=== PATIENT | male | born 1965 | race Caucasian/White ===

== ENCOUNTER 2019-11-17 | Emergency (ER) | payer OTHER ==
--- NOTE | 2019-11-17 15:07 | ED.PDOC ---
History of Present Illness - General Chief Complaint: General Stated Complaint: left shoulder pain Time Seen by Provider: 11/17/19 14:44 Source: patient Exam Limitations: no limitations - History of Present Illness Initial Comments: The patient is a 54-year-old male presented emergency room secondary to left shoulder pain that is been present for the last 4 to 5 weeks. Pain is much worse with moving his left shoulder. It is essentially posterior at its origin. It appears to be over the lateral aspect of the infraspinatus muscle. There is some pain with passive range of motion of the shoulder but much worse pain with active range of motion. He does not really remember any date injury. No dislocations. No significant falls. He has had increased activity over the last couple of months because he has been moving. No fever. No chest pain. No shortness of breath. No rash. Pain is reproducible with activation of the muscle and with palpation of the muscle. Timing/Duration: other - 4 to 5 weeks Severity: severe Improving Factors: immobilization Worsening Factors: movement Associated Symptoms: denies symptoms Allergies/Adverse Reactions: Allergies NO KNOWN ALLERGY Allergy (Verified 11/17/19 15:03) Home Medications: Ambulatory Orders Atorvastatin Calcium [Lipitor] 80 mg PO BEDTIME 11/17/19 Chlorthalidone 25 mg PO DAILY 11/17/19 Cyclobenzaprine HCl [Flexeril] 10 mg PO TID PRN #20 tab 11/17/19 Lisinopril 20 mg PO DAILY 11/17/19 Review of Systems - Review of Systems Constitutional: States: no symptoms reported EENTM: States: no symptoms reported Respiratory: States: no symptoms reported Cardiology: States: no symptoms reported Gastrointestinal/Abdominal: States: no symptoms reported Genitourinary: States: no symptoms reported Musculoskeletal: States: see HPI Skin: States: no symptoms reported Neurological: States: no symptoms reported Endocrine: States: no symptoms reported All other Systems: No Change from Baseline Past Medical History (General) - Patient Medical History Hx Stroke: No Hx Cardiac Disorders: Yes - [place] Hx Congestive Heart Failure: No Hx Diabetes: Yes - Vaccination History Hx Influenza Vaccination: Yes Hx Pneumococcal Vaccination: Yes - Social History Hx Tobacco Use: No Family Medical History - Family History Father Family History: Unknown Living Status: Physical Exam - Physical Exam General Appearance: Alert, No apparent distress Eye Exam: bilateral normal Ears, Nose, Throat: hearing grossly normal, normal pharynx Neck: full range of motion, supple Respiratory: lungs clear, normal breath sounds, no respiratory distress, no accessory muscle use Cardiovascular/Chest: normal peripheral pulses, regular rate, rhythm Peripheral Pulses: radial,right: 2+, radial,left: 2+ Gastrointestinal/Abdominal: non tender - Obese, soft Rectal Exam: deferred Back Exam: no CVA tenderness, no vertebral tenderness Extremity: no pedal edema, normal capillary refill, pedal edema - Trace, other - See history of present illness. 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 Based on exam this appears to be an infraspinatus or less likely a subscapularis strain. The patient needs to do stretching and range of motion exercises. He can follow-up with Dr. crenshaw next week for additional evaluation. Given his diabetes we cannot use a steroid. He does need to maintain good control of his diabetes. He can take 2 Aleve twice daily for the next week with food. Topical heat may also prove beneficial. He will be written for Flexeril for as needed use. This may help some but will certainly not take the pain away. Even with correct care he will likely still have symptoms for another 6 weeks, though improving. ER warnings are given for any acute worsening. The patient needs to follow-up with his primary care doctor as well for periodic risk stratification for his history of coronary artery disease and his poorly controlled diabetes. marika skinner [id number] - Results/Orders Results/Orders: EKG shows normal sinus rhythm at 93 bpm no previous EKG on file for comparison. The patient has a Q wave in lead III. Otherwise borderline prolonged QT interval. No definitive ST segment or T wave changes indicative of acute ischemia. Departure - Departure Clinical Impression: Rotator cuff strain Qualifiers: Encounter type: initial encounter Laterality: left Qualified Code(s): S46.012A - Strain of muscle(s) and tendon(s) of the rotator cuff of left shoulder, initial encounter Disposition: Discharge to Home or Self Care Condition: Fair Departure Forms: ED Discharge - Pt. Copy, Patient Portal Self Enrollment Instructions: Rotator Cuff Injury (DC) Diet: diabetic diet Activity: other Referrals: Mark Amin MD [Active Staff] - 1-2 Weeks Prescriptions: Cyclobenzaprine HCl [Flexeril] 10 mg PO TID PRN #20 tab PRN Reason: Muscle Spasms Home Medications: Ambulatory Orders Atorvastatin Calcium [Lipitor] 80 mg PO BEDTIME 11/17/19 Chlorthalidone 25 mg PO DAILY 11/17/19 Cyclobenzaprine HCl [Flexeril] 10 mg PO TID PRN #20 tab 11/17/19 Lisinopril 20 mg PO DAILY 11/17/19 Additional Instructions: The patient is a 54-year-old male presented emergency room secondary to pain to the posterior lateral aspect of his left shoulder for the last month. Based on exam this appears to be an infraspinatus or less likely a subscapularis strain. The patient needs to do stretching and range of motion exercises. He can follow-up with Dr. crenshaw next week for additional evaluation. Given his diabetes we cannot use a steroid. He does need to maintain good control of his diabetes. He can take 2 Aleve twice daily for the next week with food. Topical heat may also prove beneficial. He will be written for Flexeril for as needed use. This may help some but will certainly not take the pain away. Even with correct care he will likely still have symptoms for another 6 weeks, though improving. ER warnings are given for any acute worsening. The patient needs to follow-up with his primary care doctor as well for periodic risk stratification for his history of coronary artery disease and his poorly controlled diabetes.
== END 2019-11-17 15:25 | disposition home or self-care (01) ==

== ENCOUNTER 2019-12-13 15:16 | Emergency (ER) | payer OTHER ==
[2019-12-13] MEDS ORDERED: levoFLOXacin 500MG IV 500 MG in PREMIX BAG 1 BAG IVPB ONE (15:51)
[2019-12-13] MEDS ORDERED: cefTRIAXone SODIUM 2 GM in SODIUM CHL 0.9% 100ML MINI-BAG 100 ML IVPB ONE (15:51)
[2019-12-13] MEDS ORDERED: ACETAMINOPHEN 500 MG TAB PO ONE (15:51)
[2019-12-13] MEDS ORDERED: SODIUM CHLORIDE 0.9% 1000ML 1,000 ML IVS ONE (15:51)
[2019-12-13] MEDS ORDERED: SODIUM CHLORIDE 0.9% (FLUSH) 10 ML SYG IV PRN (15:51)
[2019-12-13] MEDS ORDERED: PROMETHAZINE HCL INJ 12.5 MG in SODIUM CHLORIDE 0.9% 50ML 50 ML IVPB ONE (16:05)
[2019-12-13] MEDS ORDERED: PROMETHAZINE HCL INJ 25 MG/ML VIAL ONE (16:16)
[2019-12-13] MEDS ORDERED: SODIUM CHLORIDE 0.9% 50ML 50 ML ONE (16:17)
[2019-12-13] MEDS ORDERED: SODIUM CHL 0.9% 100ML MINI-BAG 100 ML IVPB ONE (16:18)
--- NOTE | 2019-12-13 16:27 | RAD ---
EXAM DESCRIPTION: Foot,Right 3 Views CLINICAL HISTORY: fever, puncture wound to plantar surface of foot COMPARISON: None. TECHNIQUE: 3 views right FINDINGS: Degenerative changes are observed along the lateral malleolus. Plantar and Achilles enthesophytes are observed. Calcification of the dorsalis pedis and posterior tibial arteries are observed. No radiopaque foreign body is observed in the foot. There is some soft tissue swelling in the region of the metatarsal phalangeal joints. IMPRESSION: Degenerative changes and soft tissue swelling are observed. No foreign body is detected. Electronically signed by: Darnell Ace MD 12/13/2019 4:25 PM CDT
--- NOTE | 2019-12-13 16:28 | RAD ---
EXAM DESCRIPTION: Chest,1 View CLINICAL HISTORY: fever COMPARISON: None available TECHNIQUE: AP portable chest FINDINGS: The lungs are clear. The heart is at the upper limits of normal in size. No pleural fluid is seen. IMPRESSION: The heart is at the upper limits of normal in size. The chest is otherwise unremarkable. Electronically signed by: Darnell Ace MD 12/13/2019 4:26 PM CDT
[2019-12-13] MEDS ORDERED: SODIUM CHLORIDE 0.9% IVS ONE (17:17)
--- NOTE | 2019-12-13 17:49 | ED.PDOC ---
History of Present Illness - General Chief Complaint: Lower Extremity Injury Stated Complaint: "stepped on nail" Time Seen by Provider: 12/13/19 15:29 Source: patient, RN notes reviewed, Vital Signs reviewed, family Exam Limitations: no limitations - History of Present Illness Initial Comments: This is a 54-year-old male with type 2 diabetes presenting to the emergency department for fever, nausea, redness to the right foot. Patient states he stepped on a nail 10 days ago and has had progressively worsening pain and swelling to the foot since that time. Fever started yesterday. He has been out of his diabetes medications for 2 weeks and ran out of his testing supplies, so he has not been checking his blood sugars at home. He has reportedly had multiple puncture wounds to the foot over the last 2 years. Tdap less than 5 years ago. No other injuries. He denies any cough, shortness of breath, URI symptoms. No COVID 19 contacts, no recent travel, no sick contacts Allergies/Adverse Reactions: Allergies NO KNOWN ALLERGY Allergy (Verified 11/17/19 15:03) Home Medications: Ambulatory Orders Atorvastatin Calcium [Lipitor] 80 mg PO BEDTIME 11/17/19 Chlorthalidone 25 mg PO DAILY 11/17/19 Cyclobenzaprine HCl [Flexeril] 10 mg PO TID PRN #20 tab 11/17/19 Lisinopril 20 mg PO DAILY 11/17/19 Review of Systems - Review of Systems Constitutional: States: chills, fever EENTM: Denies: double vision, nose pain, throat pain Respiratory: Denies: cough, orthopnea, short of breath, stridor Cardiology: Denies: chest pain, edema Gastrointestinal/Abdominal: Denies: abdominal pain, diarrhea, nausea, vomiting Genitourinary: Denies: dysuria, hematuria, pain Musculoskeletal: States: joint pain. Denies: joint swelling, muscle pain, muscle stiffness, neck pain Skin: States: change in color, lesions Neurological: Denies: headache, paresthesia, tingling Endocrine: States: no symptoms reported Hematologic/Lymphatic: States: no symptoms reported Past Medical History (General) - Patient Medical History Hx Stroke: No Hx Cardiac Disorders: Yes - [place] - 6yrs ago Hx Congestive Heart Failure: No Hx Diabetes: Yes - Vaccination History Hx Influenza Vaccination: Yes Hx Pneumococcal Vaccination: Yes - Social History Hx Tobacco Use: No - Activities of Daily Living Hospice Agency (if applicable):: None - Female History Patient is a Female of Child Bearing Age (10 -59 yrs old): No - Triage Comment ED Triage Comment: pt voices he stepped on a nail last Friday and is now running a fever, along with nausea and vomiting. bottom of right foot appears redenned with puncture wound to cushion of right foot. puncture wound is black with whitened area around perimeter with no blanching. pt with hx of diabetes and neuropathy Family Medical History - Family History Father Family History: Unknown Living Status: Physical Exam - Physical Exam General Appearance: Alert, Comfortable Ears, Nose, Throat: hearing grossly normal, normal ENT inspection, normal pharynx Respiratory: chest non-tender, lungs clear, normal breath sounds, no respiratory distress Cardiovascular/Chest: normal peripheral pulses, regular rate, rhythm, no edema, no gallop, no JVD, no murmur, tachycardia Peripheral Pulses: radial,right: 2+, radial,left: 2+, dorsalis pedis,right: 2+, dorsalis pedis,left: 2+ Gastrointestinal/Abdominal: normal bowel sounds, non tender Back Exam: normal inspection, no CVA tenderness, no vertebral tenderness Extremity: normal range of motion, non-tender, normal inspection Neurologic: no motor/sensory deficits, alert, normal mood/affect, oriented x 3 Skin Exam: warm/dry, other - 3 x 5 millimeter puncture wound to the plantar surface of the right foot just proximal to the third MTP joint. There is marketed surrounding erythema, no palpable abscess. Cap refill less than 2 seconds Progress - Progress Progress: 12/13/19 17:[address] Jaquez, hospitalist at [facility] [address] Will accept his transfer. 12/13/19 17:56 Rechecked. Discussed plan for transfer. Awaiting EMS arrival. All questions answered. Patient family are comfortable plan for transfer. MDM: DDX:Sepsis, severe sepsis, abscess versus cellulitis versus osteomyelitis, diabetes 54-year-old male with poorly controlled diabetes and puncture wound to the plantar surface of the right foot, went through shoe. Progressively worsening erythema, pain, swelling to the right foot since then. He was febrile, tac hycardic, with leukocytosis of 21,006% bandemia. I am concerned about possible Severe sepsis, although no evidence of endorgan damage at this time.. He was given Levaquin, Rocephin, vancomycin in the emergency department as well as 30 mL/kg bolus. Blood cultures pending, Initial lactate normal.Due to concern for possible osteomyelitis, patient will need to be transferred for MRI availability and possible podiatry consultation.This is not available at this facility. Gabo Bhatt DO [facility] #[id number] - Results/Orders Results/Orders: EKG interpreted by me at 1603. Normal sinus rhythm, rate of 99, left axis, LVH, inferior Q waves, poor R wave progression, no ST segment elevations or depression EXAM DESCRIPTION: Chest,1 View CLINICAL HISTORY: fever COMPARISON: None available TECHNIQUE: AP portable chest FINDINGS: The lungs are clear. The heart is at the upper limits of normal in size. No pleural fluid is seen. IMPRESSION: The heart is at the upper limits of normal in size. The chest is otherwise unremarkable. Electronically signed by: Darnell Ace MD 12/13/2019 4:26 PM EXAM DESCRIPTION: Foot,Right 3 Views CLINICAL HISTORY: fever, puncture wound to plantar surface of foot COMPARISON: None. TECHNIQUE: 3 views right FINDINGS: Degenerative changes are observed along the lateral malleolus. Plantar and Achilles enthesophytes are observed. Calcification of the dorsalis pedis and posterior tibial arteries are observed. No radiopaque foreign body is observed in the foot. There is some soft tissue swelling in the region of the metatarsal phalangeal joints. IMPRESSION: Degenerative changes and soft tissue swelling are observed. No foreign body is detected. Electronically signed by: Darnell Ace MD 12/13/2019 4:25 PM 12/13/19 15:51 IV Care:Saline Lock per [facility] QSWIFT Telemetry .ONCE Sodium Chloride 0.9% (Flush) [Saline Flush Syringe] 10 ml IV PRN PRN EKG Stat Pulse Ox Stat 12/13/19 16:46 BLOOD CULTURE Stat 12/13/19 16:57 URINALYSIS Stat 12/13/19 17:17 Sodium Chloride 0.9% 1000ML [Ns 1000 ml] 1,250 ml IVS ONCE 12/13/19 18:00 LACTIC ACID Q2H Laboratory Results - last 24 hr 12/13/19 12/13/19 12/13/19 16:21 16:21 16:21 WBC 21.0 H* RBC 4.54 L Hgb 13.8 L Hct 39.5 L MCV 86.9 MCH 30.4 MCHC 35.0 RDW 12.8 Plt Count 165 MPV 8.4 Absolute Neuts (auto) Not Reportable Absolute Lymphs (auto) Not Reportable Absolute Monos (auto) Not Reportable Absolute Eos (auto) Not Reportable Neutrophils % Not Reportable Neutrophils % (Manual) 91.0 H Lymphocytes % Not Reportable Lymphocytes % (Manual) 3.0 Monocytes % Not Reportable Monocytes % (Manual) Not Reportable Eosinophils % Not Reportable Basophils % Not Reportable Band Neutrophils 6.0 H Platelet Estimate Normal Normal RBC Morphology Normal rbc morph Sodium 130 L Potassium 3.9 Chloride 98 L Carbon Dioxide 23 Anion Gap 12.9 BUN 21 H Creatinine 0.89 BUN/Creatinine Ratio 23.6 H Random Glucose 360 H Serum Osmolality 278.3 Lactic Acid 1.3 Calcium 8.6 Total Bilirubin 1.2 H AST 16 ALT 15 Alkaline Phosphatase 60 C-Reactive Protein 18.5 H* Serum Total Protein 7.0 Albumin 3.1 L Globulin 3.9 H Albumin/Globulin Ratio 0.8 L Departure - Departure Clinical Impression: Cellulitis of right foot Sepsis Qualifiers: Sepsis type: sepsis due to unspecified organism Sepsis acute organ dysfunction status: without acute organ dysfunction Qualified Code(s): A41.9 - Sepsis, unspecified organism Type II diabetes mellitus Qualifiers: Diabetes mellitus correction insulin use: without correction use Diabetes mellitus complication status: with hyperglycemia Qualified Code(s): E11.65 - Type 2 diabetes mellitus with hyperglycemia Puncture wound of right foot Qualifiers: Encounter type: initial encounter Qualified Code(s): S91.331A - Puncture wound without foreign body, right foot, initial encounter Disposition: Transfer to Hospital Condition: Fair Departure Forms: ED Discharge - Pt. Copy, Patient Portal Self Enrollment Instructions: DI for Leg Pain Referrals: Darnell Beal III, MD [Primary Care Provider] - 1-2 Weeks Home Medications: Ambulatory Orders Atorvastatin Calcium [Lipitor] 80 mg PO BEDTIME 11/17/19 Chlorthalidone 25 mg PO DAILY 11/17/19 Cyclobenzaprine HCl [Flexeril] 10 mg PO TID PRN #20 tab 11/17/19 Lisinopril 20 mg PO DAILY 11/17/19
[2019-12-13 19:06] VITALS: O2SAT 95
[2019-12-13 19:09] VITALS: BP 129/67; TEMP 100
== END 2019-12-13 19:10 | disposition short-term general hospital (02) ==
LOC: ER 15:16
DX: A41.9 Sepsis, unspecified organism (principal); S91.331A Puncture wound without foreign body, right foot, initial encounter; E11.65 Type 2 diabetes mellitus with hyperglycemia; I25.2 Old myocardial infarction; W45.0XXA Nail entering through skin, initial encounter; Y92.9 Unspecified place or not applicable
CPT/HCPCS: 36415; 71045; 73630; 80053; 81001; 83605; 85025; 86140; 87040; 93005; A4216; J0696; J2550; J7030; J7050

== ENCOUNTER 2020-01-21 | Emergency (ER) | payer OTHER ==
--- NOTE | 2020-01-21 14:32 | ED.PDOC ---
History of Present Illness - General Chief Complaint: Laceration Stated Complaint: Laceration left foot Time Seen by Provider: 01/21/20 13:40 Source: patient Exam Limitations: no limitations - History of Present Illness Initial Comments: The patient is a 54-year-old male presented emergency room after having sustained a 1-1/2 inch laceration over the distal pad of his left foot. The patient was apparently walking barefoot and cut it on a upholstery staple. The patient has no sensation in the area due to chronic diabetic neuropathy. He has wounds on his right lower extremity that have been debrided by the surgeon and are currently dressed. He is also currently receiving daptomycin and meropenem and total of 4 rounds of day. Estimated blood loss prior to arrival was probably 30 cc. He does appear to be able to move the foot well. Again sensation is poor. Capillary refill is within normal limits. He is pleasant and cooperative. No other injuries. No evidence of tendon injury. I see no arterial bleeding at this point. No visible bone exposed. No foreign body present. Timing/Duration: 1/2 hour Severity: moderate Improving Factors: nothing Worsening Factors: nothing Associated Symptoms: denies symptoms Allergies/Adverse Reactions: Allergies NO KNOWN ALLERGY Allergy (Verified 01/12/20 13:28) Home Medications: Ambulatory Orders Amlodipine Besylate [Norvasc] 5 mg PO DAILY 01/21/20 Atorvastatin Calcium [Lipitor] 80 mg PO DAILY 01/21/20 Chlorthalidone 25 mg PO DAILY 01/21/20 Clopidogrel Bisulfate 75 mg PO DAILY 01/21/20 Collagenase [Santyl] 250 unit EX DAILY 01/21/20 Gabapentin 100 mg PO TID 01/21/20 Insulin Degludec [Tresiba Flextouch] 200 unit SC DAILY 01/21/20 Insulin Lispro 100 unit SC 01/21/20 Insulin Lispro [Humalog Kwikpen] 4 unit SC TID 01/21/20 Lisinopril 40 mg PO DAILY 01/21/20 Meropenem 1 gm IV BID 01/21/20 Metformin HCl [Fortamet] 500 mg PO DAILY 01/21/20 Metoprolol Tartrate 50 mg PO BID 01/21/20 PARoxetine HCL [Paxil] 20 mg PO DAILY 01/21/20 Review of Systems - Review of Systems Constitutional: States: no symptoms reported EENTM: States: no symptoms reported Respiratory: States: no symptoms reported Cardiology: States: no symptoms reported Gastrointestinal/Abdominal: States: no symptoms reported Genitourinary: States: no symptoms reported Musculoskeletal: States: see HPI Skin: States: see HPI Neurological: States: see HPI Endocrine: States: no symptoms reported All other Systems: No Change from Baseline Past Medical History (General) - Patient Medical History Hx Seizures: No Hx Stroke: No Hx Dementia: No Hx Asthma: No Hx of COPD: No Hx Cardiac Disorders: Yes - [place] - 6yrs ago Hx Congestive Heart Failure: No Hx Pacemaker: No Hx Hypertension: Yes Hx Thyroid Disease: No Hx Diabetes: Yes Hx Gastroesophageal Reflux: No Hx Renal Disease: No Hx Cancer: No Hx of HIV: No Hx Hepatitis C: No - Vaccination History Hx Influenza Vaccination: Yes Hx Pneumococcal Vaccination: Yes - Social History Hx Tobacco Use: No Hx Alcohol Use: No Family Medical History - Family History Father Family History: Unknown Living Status: Physical Exam - Physical Exam General Appearance: Alert, Comfortable, No apparent distress Eye Exam: bilateral normal Ears, Nose, Throat: hearing grossly normal, normal pharynx Neck: full range of motion, supple Respiratory: no respiratory distress, no accessory muscle use Cardiovascular/Chest: normal peripheral pulses, no edema Peripheral Pulses: radial,right: 2+, radial,left: 2+ Gastrointestinal/Abdominal: other - Obese Rectal Exam: deferred Back Exam: no CVA tenderness Extremity: normal range of motion, no pedal edema, normal capillary refill, other - Right lower extremity dressing is left in place. 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 Wound was irrigated with a liter of saline and was reapproximated with 5 simple sutures of 3-0 Ethilon. The patient is up-to-date on his tetanus shot and will continue receiving his meropenem and daptomycin infusions. They are to monitor for any evidence of infection. They are to keep the wound covered with a Band-Aid and a little bit of Neosporin. He is to try to avoid putting too much weight on it over the next few days while it is trying to start healing. He needs to have it looked at in 3 to 4 days with his primary care doctor. Monitor for any evidence of infection. Sutures need to come out in about 2 weeks. He needs to wash it twice daily with an antibacterial soap and water starting tomorrow. ER warnings are given. - Results/Orders Results/Orders: Procedure note: Risk and benefits were explained and patient agreed to proceed. Wound was irrigated with a liter of normal saline. 5 simple sutures of 3-0 Ethilon were used for reapproximation. Patient tolerated this well. Estimated blood loss in total was probably close to 40 cc. Sutures can come out in 2 weeks. Departure - Departure Clinical Impression: Accidental laceration ICD-10 Supporting Text: 1-1/2 inch laceration to the left foot, patient with diabetic neuropathy. Initial evaluation. Disposition: Discharge to Home or Self Care Condition: Fair Departure Forms: ED Discharge - Pt. Copy, Patient Portal Self Enrollment Diet: diabetic diet Activity: other Home Medications: Ambulatory Orders Amlodipine Besylate [Norvasc] 5 mg PO DAILY 01/21/20 Atorvastatin Calcium [Lipitor] 80 mg PO DAILY 01/21/20 Chlorthalidone 25 mg PO DAILY 01/21/20 Clopidogrel Bisulfate 75 mg PO DAILY 01/21/20 Collagenase [Santyl] 250 unit EX DAILY 01/21/20 Gabapentin 100 mg PO TID 01/21/20 Insulin Degludec [Tresiba Flextouch] 200 unit SC DAILY 01/21/20 Insulin Lispro 100 unit SC 01/21/20 Insulin Lispro [Humalog Kwikpen] 4 unit SC TID 01/21/20 Lisinopril 40 mg PO DAILY 01/21/20 Meropenem 1 gm IV BID 01/21/20 Metformin HCl [Fortamet] 500 mg PO DAILY 01/21/20 Metoprolol Tartrate 50 mg PO BID 01/21/20 PARoxetine HCL [Paxil] 20 mg PO DAILY 01/21/20 Additional Instructions: The patient is a 54-year-old male presented emergency room secondary to sustaining a 1-1/2 inch laceration to the distal plantar aspect of his left foot. Wound was irrigated with a liter of saline and was reapproximated with 5 simple sutures of 3-0 Ethilon. The patient is up-to-date on his tetanus shot and will continue receiving his meropenem and daptomycin infusions. They are to monitor for any evidence of infection. They are to keep the wound covered with a Band-Aid and a little bit of Neosporin. He is to try to avoid putting too much weight on it over the next few days while it is trying to start healing. He needs to have it looked at in 3 to 4 days with his primary care doctor. Monitor for any evidence of infection. Sutures need to come out in about 2 weeks. He needs to wash it twice daily with an antibacterial soap and water starting tomorrow. ER warnings are given.
== END 2020-01-21 14:56 | disposition home or self-care (01) ==

== ENCOUNTER → 2020-08-25 | Outpatient (CLI) | payer OTHER | LOC: BFHH 10:13 | PROVIDERS: ATTEND Internal Medicine Infectious Disease | DX: E11.21 Type 2 diabetes mellitus with diabetic nephropathy (principal); I25.10 Atherosclerotic heart disease of native coronary artery without angina pectoris; I50.20 Unspecified systolic (congestive) heart failure; I25.2 Old myocardial infarction ==

== ENCOUNTER → 2020-09-09 | Outpatient (CLI) | payer OTHER | LOC: BFHH 13:31 | PROVIDERS: ATTEND Internal Medicine Infectious Disease | DX: E11.51 Type 2 diabetes mellitus with diabetic peripheral angiopathy without gangrene (principal); I11.0 Hypertensive heart disease with heart failure; Z79.2 Long term (current) use of antibiotics; E78.5 Hyperlipidemia, unspecified; E11.40 Type 2 diabetes mellitus with diabetic neuropathy, unspecified; R79.82 Elevated C-reactive protein (CRP) ==

== ENCOUNTER → 2020-09-22 | Outpatient (CLI) | payer OTHER | LOC: BFHH 10:49 | PROVIDERS: ATTEND Internal Medicine Infectious Disease | DX: E11.621 Type 2 diabetes mellitus with foot ulcer (principal); L97.516 Non-pressure chronic ulcer of other part of right foot with bone involvement without evidence of necrosis; E11.51 Type 2 diabetes mellitus with diabetic peripheral angiopathy without gangrene; M86.9 Osteomyelitis, unspecified ==